=== PATIENT | female | born 1985 | race Caucasian/White ===

== ENCOUNTER 2023-10-03 00:11 | Emergency (ER) | payer OTHER ==
[~2023-10-03] VITALS: Ht 149.9 cm; Wt 52.2 kg
[2023-10-03 00:26] VITALS: BP 104/62; PULSE 83; RESP 18; TEMP 98.3; O2SAT 100
[2023-10-03 01:19] VITALS: O2SAT 100
== END 2023-10-03 01:58 | disposition left against medical advice (07) ==
LOC: MED 00:11
DX: R51.9 Headache, unspecified (principal); M79.602 Pain in left arm; Z53.21 Procedure and treatment not carried out due to patient leaving prior to being seen by health care provider; V49.88XA Car occupant (driver) (passenger) injured in other specified transport accidents, initial encounter; Y93.89 Activity, other specified; Y92.89 Other specified places as the place of occurrence of the external cause; Y99.8 Other external cause status
CPT/HCPCS: 99281

== ENCOUNTER 2024-07-07 20:02 | Emergency (ER) | payer OTHER ==
[~2024-07-07] VITALS: Ht 147.3 cm; Wt 52.2 kg
[2024-07-07 20:10] VITALS: BP 118/64; PULSE 86; RESP 18; TEMP 98.3; O2SAT 98
[2024-07-07] MEDS ORDERED: DICYCLOMINE HCL LIQUID 10 MG/5 ML UDC ONE ×2 (20:21→21:10)
[2024-07-07] MEDS ORDERED: ALUMINUM HYD/MAG/SIMETHICONE 30 ML UDC ONE ×2 (20:21→21:10)
[2024-07-07] MEDS: ONDANSETRON 4 MG ODT PO ONE ×2 (20:33→21:12)
[2024-07-07] MEDS: DICYCLOMINE HCL LIQUID 20 MG, ALUMINUM HYD/MAG/SIMETHICONE 30 ML, LIDOCAINE VISCOUS 2% ... PO ONE ×2 (20:33→21:12)
[2024-07-07] MEDS ORDERED: FAMO-90 PO (21:03)
[2024-07-07] MEDS ORDERED: ONDA-188 SL (21:03)
== END 2024-07-07 21:21 | disposition home or self-care (01) ==
LOC: MED 20:02
DX: K29.70 Gastritis, unspecified, without bleeding (principal); Z79.899 Other long term (current) drug therapy; Z98.890 Other specified postprocedural states
CPT/HCPCS: 81025; 99284; Q0162